=== PATIENT | female | born 1965 | race Caucasian/White ===

== ENCOUNTER 2024-12-24 10:42 | Outpatient (CLI) | payer BC, SELFPAY ==
--- NOTE | ~2024-12-24 | XR_ITS ---
EXAMINATION: XR knee RT min 4V, 12/24/2024 10:47 CDT HISTORY: Pain for 4 weeks, no injury, no surgery COMPARISON: No comparisons available. Findings: No acute fracture or malalignment. Moderate to severe tricompartmental degenerative changes with small effusion Soft tissues unremarkable. Impression: No acute fracture or malalignment. Reviewed, dictated and finalized at location A. Impression: No acute fracture or malalignment.
== END 2024-12-24 10:43 | disposition home or self-care (01) ==
LOC: GOSHIMG 10:42
PROVIDERS: PCP Family Medicine; Visit Provider Family Medicine
DX: M25.561 Pain in right knee (principal)
CPT/HCPCS: 73564